=== PATIENT | female | born 1985 | race American Indian/Alaskan Native ===

== ENCOUNTER 2020-06-03 12:54 | Emergency (ER) | payer OTHER ==
[2020-06-03] MEDS ORDERED: LIDOCAINE-MPF (1%) 10 MG/1 ML VIAL 5 ML INFILTRATI ONE (15:14)
[2020-06-03] MEDS ORDERED: AZITHROMYCIN 1 GM ORAL PWDR PACKET PO ONE (15:14)
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
[2020-06-03 16:30] VITALS: BP 100/60
== END 2020-06-03 16:07 | disposition home or self-care (01) ==
LOC: EEVIPCON 12:54 → ED 12:54
DX: T74.21XA Adult sexual abuse, confirmed, initial encounter (principal); F17.200 Nicotine dependence, unspecified, uncomplicated; Z98.890 Other specified postprocedural states; Z98.51 Tubal ligation status; Z88.6 Allergy status to analgesic agent; Z88.8 Allergy status to other drugs, medicaments and biological substances; Y92.89 Other specified places as the place of occurrence of the external cause
CPT/HCPCS: 36415; 84703; 96372; 99283; J0696